=== PATIENT | female | born 1995 | race Caucasian/White ===

== ENCOUNTER → 2024-07-17 | Outpatient (CLI) | payer OTHER | LOC: M WHC 07:53 | PROVIDERS: ATTEND Physician Assistant | DX: Z34.01 Encounter for supervision of normal first pregnancy, first trimester (principal) ==

== ENCOUNTER 2024-11-09 11:03 | Emergency (ER) | payer OTHER ==
[2024-11-09] MEDS ORDERED: PRENTAB9 PO (11:34)
[2024-11-09] MEDS ORDERED: CHOL500T10 PO (11:34)
[2024-11-09] MEDS ORDERED: TUMS500C PO (11:34)
[2024-11-09] MEDS ORDERED: ONDA-282 PO (21:04)
== END 2024-11-09 11:06 | disposition admitted as inpatient to this hospital (09) ==
LOC: M ED 11:03
DX: Z53.21 Procedure and treatment not carried out due to patient leaving prior to being seen by health care provider (principal)

== ENCOUNTER 2024-11-09 11:12 | Outpatient (CLI) | payer OTHER ==
[~2024-11-09] VITALS: Ht 167.6 cm; Wt 104.4 kg
[2024-11-09] VITALS (10 sets, daily range): BP systolic 88–127; BP diastolic 48–66; O2SAT 96–97
[2024-11-09] MEDS ORDERED: CHOL500T10 PO (11:34)
[2024-11-09] MEDS ORDERED: PRENTAB9 PO (11:34)
[2024-11-09] MEDS ORDERED: TUMS500C PO (11:34)
[2024-11-09] MEDS ORDERED: HOME MED LIST COMPLETE! XX SCH (11:35)
[2024-11-09] MEDS: LACTATED RINGER'S 1000 ML IV STA (12:15)
[2024-11-09 12:28] LABS: BASO % 0.2 % (0.0-1.0); EOS % 0.1 % (0.0-3.0); HEMATOCRIT 35.4 % (36.0-47.0); HEMOGLOBIN 12.1 g/dl (12.0-15.5); LYMPH # 0.3 10^3/uL (1.5-5.0); LYMPH % 2.6 % (24.0-44.0); MEAN CORPUSCULAR HEMOGLOBIN 29.8 pg (27.0-33.0); MEAN CORPUSCULAR HGB CONC 34.2 g/dl (32.0-36.5); MEAN CORPUSCULAR VOLUME 87.2 fl (80.0-96.0); MONO # 0.3 10^3/uL (0.0-0.8); MONO % 2.6 % (2.0-8.0); NEUTROPHILS # 11.7 10^3/uL (1.5-8.5); NEUTROPHILS % 93.9 % (36.0-66.0); PLATELET COUNT, AUTOMATED 231 10^3/uL (150-450); RED BLOOD COUNT 4.06 10^6/uL (4.00-5.40); WHITE BLOOD COUNT 12.4 10^3/uL (4.0-10.0)
[2024-11-09] MEDS: ONDANSETRON 4MG 2ML VIAL IV ONE (12:38)
[2024-11-09 12:51] LABS: LIPASE 31 U/L (12-53)
[2024-11-09 12:53] LABS: ALBUMIN 2.9 G/DL (3.2-5.2); ALKALINE PHOSPHATASE 86 U/L (35-104); ALT/SGPT 10 U/L (7.0-40); AST/SGOT 12 U/L (<34); BILIRUBIN,TOTAL 0.6 MG/DL (0.3-1.2); BLOOD UREA NITROGEN 11 MG/DL (9-23); CALCIUM LEVEL 8.9 MG/DL (8.5-10.1); CARBON DIOXIDE LEVEL 23 MMOL/L (20-31); CHLORIDE LEVEL 104 MMOL/L (98-107); CREATININE FOR GFR 0.43 MG/DL (0.55-1.30); GLOMERULAR FILTRATION RATE > 60.0 (>60); GLUCOSE, FASTING 102 MG/DL (60-100); SODIUM LEVEL 139 MMOL/L (136-145); TOTAL PROTEIN 6.8 G/DL (5.7-8.2)
[2024-11-09] MEDS: LR 1,000 ML IV SCH (13:15)
[2024-11-09] MEDS ORDERED: ONDA-282 PO (21:04)
== END 2024-11-09 21:06 | disposition home or self-care (01) ==
LOC: M LDO 11:12
PROVIDERS: ATTEND Specialist
DX: O99.613 Diseases of the digestive system complicating pregnancy, third trimester (principal); K52.9 Noninfective gastroenteritis and colitis, unspecified; Z3A.32 32 weeks gestation of pregnancy
CPT/HCPCS: 59025; 80053; 83690; 85025; 87507; 96374; G0463; J2405